=== PATIENT | female | born 1955 | race Caucasian/White ===

== ENCOUNTER → 2024-03-30 08:40 | Outpatient (REF) | payer MEDICARE, BC, SELFPAY | LOC: HWWDC 08:40 | PROVIDERS: ATTENDING PHYSICIAN Obstetrics & Gynecology; FAMILY PHYSICIAN Nurse Practitioner | DX: Z12.31 Encounter for screening mammogram for malignant neoplasm of breast (principal) | CPT/HCPCS: 77063; 77067 ==

== ENCOUNTER → 2024-11-01 10:36 | Outpatient (REF) | payer MEDICARE, BC, SELFPAY | LOC: RAD 10:36 | PROVIDERS: ATTENDING PHYSICIAN Hospitalist | DX: J06.9 Acute upper respiratory infection, unspecified (principal) | CPT/HCPCS: 71046 ==